=== PATIENT | male | born 1965 | race Two or more races ===

== ENCOUNTER 2023-09-13 08:49 | Emergency (ER) | payer OTHER ==
[~2023-09-13] VITALS: Ht 177.8 cm; Wt 131.5 kg
[2023-09-13] MEDS ORDERED: COZAAR100 MG PO (09:17)
[2023-09-13] MEDS ORDERED: METFORMIN HCL500 MG PO (09:18)
[2023-09-13] MEDS ORDERED: CRESTOR5 MG PO (09:18)
[2023-09-13] MEDS ORDERED: KETOROLAC TROMETHAMINE 60 MG VIAL IM STA (10:01)
== END 2023-09-13 11:27 | disposition home or self-care (01) ==
LOC: ER 08:50
DX: S80.01XA Contusion of right knee, initial encounter (principal); W18.39XA Other fall on same level, initial encounter; Y93.89 Activity, other specified; Y92.018 Other place in single-family (private) house as the place of occurrence of the external cause; Y99.9 Unspecified external cause status; E11.9 Type 2 diabetes mellitus without complications; Z79.84 Long term (current) use of oral hypoglycemic drugs; I10 Essential (primary) hypertension